=== PATIENT | female | born 1975 | race Caucasian/White ===

== ENCOUNTER 2021-09-19 04:28 | Day surgery (SDC) | payer BC ==
[2021-09-18 13:00] VITALS: BMI 21.8
[2021-09-19] MEDS ORDERED: ceFAZolin SODIUM 1 GM VIAL ONE ×2 (07:20→10:48)
[2021-09-19] MEDS ORDERED: PHENAZOPYRIDINE HCL 100 MG TABLET (FP) PO ONE (08:00)
[2021-09-19] MEDS ORDERED: CEFAZOLIN 2 GM in DEXTROSE 5%-WATER - 100 ML IVPB ONE (08:00)
[2021-09-19] MEDS ORDERED: LIDOCAINE HCL/PF 2% SDV 5ML VIAL ONE (08:02)
[2021-09-19] MEDS ORDERED: ROCURONIUM BROMIDE 50 MG/5 ML SYRINGE ONE (08:02)
[2021-09-19] MEDS ORDERED: PROPOFOL 20 ML ONE (08:03)
[2021-09-19] MEDS ORDERED: MIDAZOLAM HCL 2 MG/2 ML SINGLE DOSE VIAL ONE ×2 (08:17)
[2021-09-19] MEDS ORDERED: ACETAMINOPHEN 1000 MG/100 ML VIAL IVPB ONE (08:24)
[2021-09-19] MEDS ORDERED: GABAPENTIN 300 MG CAPSULE PO ONE (08:25)
[2021-09-19] MEDS ORDERED: ceFAZolin SODIUM 1 GM VIAL IVPB ONE (09:20)
[2021-09-19] MEDS ORDERED: DEXAMETHASONE SOD PHOSPHATE 4 MG/1 ML VIAL ONE (10:48)
[2021-09-19] MEDS ORDERED: KETOROLAC TROMETHAMINE 30 MG/1 ML VIAL ONE (10:48)
[2021-09-19] MEDS ORDERED: NEOSTIGMINE METHYLSULFATE 0.5 MG/ML - 10 ML MDV ONE (10:50)
[2021-09-19] MEDS ORDERED: GLYCOPYRROLATE 0.2 MG/1 ML VIAL ONE (10:50)
[2021-09-19] MEDS ORDERED: LACTATED RINGERS SOLUTION 1,000 ML/1,000 ML INFUS.BAG IV SCH (11:30)
[2021-09-19] MEDS ORDERED: IBUPROFEN 800 MG/8 ML IJ IVPB SCH (11:30)
[2021-09-19] MEDS ORDERED: ACETAMINOPHEN 325 MG TABLET (FP) PO PRN (11:30)
[2021-09-19] MEDS ORDERED: oxyCODONE HCL 5 MG TABLET PO PRN (11:30)
[2021-09-19] MEDS ORDERED: ACETAMINOPHEN INJECTION 100 ML IVPB ONE (11:49)
[2021-09-19] MEDS: ACETAMINOPHEN 1000 MG/100 ML VIAL IVPB SCH ×2 (11:53→16:48)
[2021-09-19] MEDS ORDERED: ONDANSETRON 4 MG/2 ML VIAL IVPUSH PRN (12:12)
[2021-09-19] MEDS: CEFAZOLIN 2 GM in DEXTROSE 5%-WATER - 100 ML IVPB SCH (19:46)
[2021-09-19] MEDS: IBUPROFEN 800 MG/8 ML IJ IVPB SCH (20:26)
[2021-09-19] MEDS ORDERED: BISACODYL 5 MG TABLET.DR (FP) PO ONE (21:07)
[2021-09-20] MEDS: ACETAMINOPHEN 1000 MG/100 ML VIAL IVPB SCH ×3 (00:39→07:50)
[2021-09-20] MEDS: CEFAZOLIN 2 GM in DEXTROSE 5%-WATER - 100 ML IVPB SCH (02:37)
[2021-09-20] MEDS: IBUPROFEN 800 MG/8 ML IJ IVPB SCH ×2 (04:16→11:42)
[2021-09-20 09:50] LABS: BASO % 0.4 % (0-2.0); EOS % 0.5 % (0-4.5); HEMATOCRIT 34.8 % (32.4-45.2); HEMOGLOBIN 11.5 GM/dL (10.7-15.3); LYMPH % 17.8 % (8-40); MCH 26.4 pg (25.7-33.7); MEAN PLT VOLUME 7.7 fl (7.5-11.1); MONO % 7.5 % (3.8-10.2); NEUT % 73.8 % (42.8-82.8); PLATELET COUNT 362 10^3/uL (134-434); RBC 4.35 M/mm3 (3.60-5.2); RDW 18.2 % (11.6-15.6); WHITE BLOOD COUNT 12.1 K/mm3 (4.0-10.0)
[2021-09-20] MEDS ORDERED: ENOXAPARIN NA (PORCINE) 30 MG/0.3 ML DISP.SYRIN SQ SCH (10:00)
[2021-09-20 10:08] LABS: ALBUMIN 3.2 g/dl (3.4-5.0); BLOOD UREA NITROGEN 5.5 mg/dL (7-18); CALCIUM 8.6 mg/dL (8.5-10.1)
[2021-09-20 10:13] LABS: BILIRUBIN,TOTAL 0.5 mg/dL (0.2-1); TOT PROT 6.8 g/dl (6.4-8.2)
[2021-09-20 10:22] LABS: CREATININE 0.8 mg/dL (0.55-1.3)
[2021-09-20 14:34] VITALS: BP 114/76; PULSE 77; TEMP 98.7
== END 2021-09-20 13:30 | disposition home or self-care (01) ==
LOC: JASUSAT 04:28 → J3W 14:55 → JASUSAT 09-20 13:30
PROVIDERS: ATTEND Obstetrics & Gynecology
PROC: 8E0W4CZ Robotic Assisted Procedure of Trunk Region, Percutaneous Endoscopic Approach (ICD-10-PCS; 2021-09-19)
PROC: 0UT9FZZ Resection of Uterus, Via Natural or Artificial Opening With Percutaneous Endoscopic Assistance (ICD-10-PCS; principal; 2021-09-19 09:00)
PROC: 0UT7FZZ Resection of Bilateral Fallopian Tubes, Via Natural or Artificial Opening With Percutaneous Endoscopic Assistance (ICD-10-PCS; 2021-09-19 09:00)
DX: N92.0 Excessive and frequent menstruation with regular cycle (principal); D25.9 Leiomyoma of uterus, unspecified; N72 Inflammatory disease of cervix uteri
CPT/HCPCS: 58552; S2900; 36415; 80053; 81025; 84702; 85025; 86850; 86900; 86901; 86922; 88302-TC; 88307-TC; 94010; 94760; J0131

== ENCOUNTER 2024-08-22 04:42 | Day surgery (SDC) | payer BC ==
[2024-08-17 11:17] VITALS: BMI 27.2
[2024-08-22] MEDS ORDERED: MIDAZOLAM HCL 2 MG/2 ML SINGLE DOSE VIAL ONE (10:38)
[2024-08-22] MEDS ORDERED: DEXAMETHASONE SOD PHOSPHATE 4 MG/1 ML VIAL ONE (10:39)
[2024-08-22] MEDS ORDERED: ONDANSETRON 4 MG/2 ML VIAL ONE (10:39)
[2024-08-22] MEDS ORDERED: ceFAZolin SODIUM 1 GM VIAL ONE (10:39)
[2024-08-22] MEDS ORDERED: ROCURONIUM BROMIDE 50 MG/5 ML SYRINGE ONE ×2 (10:39→11:48)
[2024-08-22] MEDS ORDERED: PROPOFOL 20 ML ONE (10:39)
[2024-08-22] MEDS ORDERED: KETOROLAC TROMETHAMINE 30 MG/1 ML VIAL ONE (10:39)
[2024-08-22] MEDS: ceFAZolin SODIUM 1 GM VIAL IVPB ONE (11:00)
[2024-08-22] MEDS ORDERED: HYDROmorphone HCl 2 MG/ML VIAL ONE (11:17)
[2024-08-22] MEDS ORDERED: SUGAMMADEX SODIUM 200 MG/2 ML VIAL ONE (11:59)
[2024-08-22] MEDS ORDERED: oxyCODONE HCL 5 MG TABLET PO PRN (12:30)
[2024-08-22] MEDS ORDERED: ONDANSETRON 4 MG/2 ML VIAL IVPUSH PRN (12:30)
[2024-08-22] MEDS: LACTATED RINGERS SOLUTION 1,000 ML IV SCH (13:10)
[2024-08-22] MEDS ORDERED: ACETAMINOPHEN 325 MG TABLET (FP) ONE (17:18)
[2024-08-22] MEDS: ACETAMINOPHEN 325 MG TABLET (FP) PO ONE (17:25)
[2024-08-22 17:42] VITALS: RESP 18
[2024-08-22 17:57] VITALS: BP 118/67; PULSE 86; TEMP 98
== END 2024-08-22 18:55 | disposition home or self-care (01) ==
LOC: JASU-SURG 04:42
PROVIDERS: ATTEND Obstetrics & Gynecology
PROC: 8E0W4CZ Robotic Assisted Procedure of Trunk Region, Percutaneous Endoscopic Approach (ICD-10-PCS; 2024-08-22)
PROC: 0UB24ZZ Excision of Bilateral Ovaries, Percutaneous Endoscopic Approach (ICD-10-PCS; 2024-08-22)
PROC: 8E0W4CZ Robotic Assisted Procedure of Trunk Region, Percutaneous Endoscopic Approach (ICD-10-PCS; 2024-08-22)
PROC: 0UB24ZZ Excision of Bilateral Ovaries, Percutaneous Endoscopic Approach (ICD-10-PCS; principal; 2024-08-22 10:00)
DX: N80.103 Endometriosis of bilateral ovaries, unspecified depth (principal)
CPT/HCPCS: 58662; S2900; 81025; 88305-TC; 94760